=== PATIENT | female | born 1980 | race Hispanic/Latino ===

== ENCOUNTER 2021-04-29 08:41 | Outpatient (CLI) | payer SELFPAY ==
[2021-04-29 09:54] LABS: ALT (SGPT) 14 U/L (8-55); AST (SGOT) 12 U/L (5-34); Albumin 4.2 g/dL (3.5-5.0); Alkaline Phosphatase 56 U/L (40-110); Anion Gap 11 mmol/L (10-20); BUN (Urea Nitrogen) 15 mg/dL (7.0-18.7); Bilirubin, Total 0.9 mg/dL (0.2-1.2); Calc. Creatinine Clearance 0 mL/min (70-130); Calcium 9.5 mg/dL (7.8-10.44); Carbon Dioxide 25 mmol/L (22-29); Chloride 108 mmol/L (98-107); Cholesterol 174 mg/dl (< 200 Desired); Glucose 94 mg/dL (70-105); HDL Cholesterol 35 mg/dL (>60 Neg Risk); LDL Cholesterol, Calculated 108 mg/dL; Potassium 3.9 mmol/L (3.5-5.1); Protein, Total 7.2 g/dL (6.0-8.3); Sodium 140 mmol/L (136-145); Triglycerides 156 mg/dL (Less than 150)
[2021-04-29 10:38] LABS: Thyroid Stimulating Hormone 1.8528 uIU/mL (0.35-4.94)
[2021-04-29 15:10] LABS: Free T4 (Free Thyroxine) 0.76 ng/dL (0.70-1.48)
== END 2021-04-29 08:42 | disposition home or self-care (01) ==
LOC: MADLAB 08:41
PROVIDERS: ATTEND Family Medicine
DX: E78.5 Hyperlipidemia, unspecified (principal); F41.1 Generalized anxiety disorder
CPT/HCPCS: 36415; 80053; 80061; 84439; 84443